=== PATIENT | female | born 1945 | race Caucasian/White ===

== ENCOUNTER 2018-09-15 03:13 | Observation (INO) | payer OTHER ==
[~2018-09-15] VITALS: Ht 144.8 cm; Wt 55.5 kg
[~2018-09-15 03:13] MED LIST: ASPI-535 PO; METO-448
[2018-09-15] MEDS ORDERED: SOD CHLORIDE 0.9% 500 ML IV STA (03:15)
[2018-09-15] MEDS ORDERED: ASPI81TA52 PO (06:36)
[2018-09-15] MEDS ORDERED: METO-448 PO (06:37)
[2018-09-15] MEDS ORDERED: DEXTROSE 5%-0.45% NACL 1,000 ML IV SCH (08:30)
[2018-09-15 09:00] VITALS: Ht 144.8 cm; Wt 55.5 kg
[2018-09-15 09:08] VITALS: BP 130/66; PULSE 101; RESP 18
--- NOTE | 2018-09-15 09:49 | PDOCDIS ---
Discharge Instructions CONDITION [id number] Patient Condition: [id number] Good HOME CARE INSTRUCTIONS: [id number] Diet Instructions: [id number] y FOLLOW UP/APPOINTMENTS Follow-up Plan pcp 1 week ANDRAE MCDANIELS MD September 15, 2018 09:49
--- NOTE | 2018-09-15 09:51 | PDOCDIS ---
Discharge Instructions CONDITION [id number] Patient Condition: [id number] Good HOME CARE INSTRUCTIONS: [id number] Diet Instructions: [id number] y FOLLOW UP/APPOINTMENTS Follow-up Plan pcp [address] Boudreaux 1 week ANDRAE MCDANIELS MD September 15, 2018 09:51
--- NOTE | 2018-09-15 12:32 | CONS ---
Assessment/Plan Assessment/Plan Hospital Course (Demo Recall) Summary Assessment and Plan: Assessment: BRBPR External hemorrhoids Macrocytic anemia- stable -CT abd/pelvis - unremarkable liver Indirect hyperbilirubinemia Tachycardia Cherelle-Danlos Plan: Colonoscopy was offered to the patient- after speaking with her son and brother, she currently declines in-pt colonoscopy and would prefer to f/u as an outpatient Discussed importance of following to r/o other causes of rectal bleeding including colon ca, she verbalized understanding and again declines in-pt colonoscopy. Discussed recommendations of High fiber diet, frame from straining to avoid constipation, okay to use [id number] hemorrhoidal medications i.e. Preparation H. Discussed need to follow-up with GI in 1 week for further evaluation and to schedule out-pt colonoscopy Patient seen in collaboration with Dr. Boudreaux CC: JASS BOUDREAUX MD ; Consultation Date/Type/Reason Admit Date/Time September 15, 2018 at 05:55 Type of Consult GI Reason for Consultation Rectal bleeding Date/Time of Note DATE: 09/15/18 TIME: 12:24 Hx of Present Illness This is a 73-year-old female with history of tachycardia currently on metoprolol who presented to the hospital with complaints of lower GI bleed. Patient states bleeding has been intermittent and recently progressively worse. She describes rectal bleeding as bright red. Initial labs show hemoglobin of 12.3, hematocrit 36.0 and macrocytic hyperchromic indices. Hemoglobin was rechecked [address] and documented 11.6. At time evaluation patient states she feels the urge to have a bowel movement unable to and notes that she has a pad in place with bright red blood she denies bleeding from her vagina states is all rectal. 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 Currently she denies n/v, abdominal pain, melena, unintentional weight loss. Denies family history of colon cancer and states she is never had a colonoscopy. Given clinical picture colonoscopy was recommended. Patient states she spoke to her son and brother and has decided not to move forward with inpatient colonoscopy she states she will follow-up as an outpatient to schedule colonoscopy. Discussed the importance given clinical picture to rule out other etiology of rectal bleeding including colon cancer patient verbalized understanding and agrees to follow-up as an outpatient to be evaluated. Review of Systems: A 12 system, review was conducted and is negative except as noted in the HPI or here. Past Medical History Home Meds Reported Medications Metoprolol Tartrate* (Lopressor*) 25 Mg Tab, 12.5 MG PO BID, #60 TAB 09/15/18 Aspirin (Low Dose Aspirin) 81 Mg Tablet.dr, 81 MG PO DAILY, #30 TAB 09/15/18 Discontinued Reported Medications Aspirin Ec (Aspir 81) 81 Mg Tablet.dr, 81 MG PO DAILY 10/18/11 Metoprolol Tartrate* (Lopressor*) 25 Mg Tab, DAILY, 0 Refills 09/25/10 Medications Current Medications Dextrose/Sodium Chloride 1,000 ml @ 75 mls/hr [id number] IV ; Start 09/15/18 at 08:30 Allergies: Coded Allergies: No Known Allergy (Unverified , 09/15/18) Social History Smoking Status: Never smoker Exam/Review of Systems Exam Vitals Vital Signs Date Temp Pulse Resp B/P (MAP) Pulse Ox O2 O2 Flow FiO2 Time Delivery Rate 09/15/18 98.7 101 18 130/66 97 Room Air 09:08 (87) Intake and Output 09/14/18 09/14/18 09/15/18 1515:00 23:00 07:00 IntakeIntake Total 500 ml BalanceBalance 500 ml Exam PHYSICAL EXAMINATION: GENERAL: Well developed, well nourished, alert & oriented x 3, in no acute distress SKIN: No lesions HEAD: Normocephalic, atraumatic, no tenderness. EYES: Pupils equal reactive to light and accommodation, no discharge. EARS/NOSE AND THROAT: Ears normal, nose normal. NECK: Supple, no masses CHEST: Inspection within normal limits. CARDIOVASCULAR: Heart: Regular rate and rhythm RESPIRATORY: Lungs clear to auscultation and percussion, no wheezing, no rubs GASTROINTESTINAL AND LIVER: Abdomen: Soft, non tenderness, non-distended, no hernias, no masses, no organomegaly, no ascites, no guarding, no rebound tenderness, normoactive bowel sounds. Rectal: External hemorrhoid GENITOURINARY: Female genitalia within normal limits. EXTREMITIES: No cyanosis, clubbing or edema. Results Result Diagram: 09/15/18 0907 09/15/18 0403 Results 24hrs Laboratory Tests Test 09/15/18 04:03 09/15/18 04:37 09/15/18 04:55 09/15/18 09:07 White Blood Count 4.8 Red Blood Count 3.53 L Hemoglobin 12.3 11.6 L Hematocrit 36.0 L Mean Corpuscular 102.0 H Volume Mean Corpuscular 34.8 H Hemoglobin Mean Corpuscular 34.2 Hemoglobin Concen t Red Cell 12.7 Distribution Width Platelet Count 221 Mean Platelet 9.9 Volume Immature 0.400 Granulocytes % Neutrophils % 61.4 Lymphocytes % 29.3 Monocytes % 7.5 Eosinophils % 0.6 Basophils % 0.8 Nucleated Red 0.0 Blood Cells % Immature 0.020 Granulocytes # Neutrophils # 2.9 Lymphocytes # 1.4 Monocytes # 0.4 Eosinophils # 0.0 Basophils # 0.0 Nucleated Red 0.0 Blood Cells # Prothrombin Time 12.8 Prothrombin Time 1.0 Ratio INR International 0.95 Normalized Ratio Activated 26.6 Partial Thrombopl ast Time Sodium Level 140 Potassium Level 4.0 Chloride Level 108 Carbon Dioxide 25 Level Anion Gap 7 Blood Urea 17 Nitrogen Creatinine 0.52 Est Glomerular Filtrat Rate mL/min Glucose Level 107 Calcium Level 9.6 Total Bilirubin 2.2 H Direct Bilirubin 0.00 Indirect 2.2 H Bilirubin Aspartate Amino 15 Transf (AST/SGOT) Alanine 18 Aminotransferase (ALT/SGPT) Alkaline 94 Phosphatase Total Protein 7.0 Albumin 4.0 Globulin 3.00 Albumin/Globulin 1.33 Ratio Lipase 70 Urine Color YELLOW Urine Clarity SLIGHTLY CLOUDY A Urine pH 6.0 Urine Specific 1.016 [place] Urine Ketones NEGATIVE Urine Nitrite NEGATIVE Urine Bilirubin NEGATIVE Urine NEGATIVE Urobilinogen Urine Leukocyte 2+ H Esterase Urine Microscopic 5 RBC Urine Microscopic 26 H WBC Urine FEW A Transitional Epithelial Cells Urine Bacteria MODERATE Urine Mucus FEW A Urine Hemoglobin 3+ H Urine Glucose NEGATIVE Urine Total 1+ H Protein Bedside Urine pH 6.0 (LAB) Bedside Urine 2+ H Protein (LAB) Bedside Urine Negative Glucose (UA) Bedside Urine Negative Ketones (LAB) Bedside Urine 3+ H Blood Bedside Urine Negative Nitrite (LAB) Bedside Urine 2+ H Leukocyte Esteras e (L Medications Medication Current Medications Dextrose/Sodium Chloride 1,000 ml @ 75 mls/hr [id number] IV ; Start 09/15/18 at 08:30 CARY RIZVI 22, 2019 12:32
--- NOTE | 2018-09-15 14:13 | HP ---
DATE OF ADMISSION: 09/15/2018 CHIEF COMPLAINT: Rectal bleed. HISTORY OF PRESENT ILLNESS: A 73-year-old female with unremarkable past medical history who presente d to emergency room with complaint of rectal bleed. The patient denies any abdominal pain. No nause a, vomiting or hematemesis. No melena. She attributes the bleeding to hemorrhoids. Bleeding gets c ourse when she has a bowel movement. She denies being constipated. Initial hemoglobin was 12.3 and repeat hemoglobin was 11.6. The patient takes baby aspirin daily. PAST MEDICAL HISTORY: Hypertension. MEDICATIONS PRIOR TO ADMISSION: 1. Metoprolol 12.5 mg p.o. b.i.d. 2. Aspirin 81 mg p.o. daily. SOCIAL HISTORY: The patient lives at home with a caregiver. She denies tobacco or alcohol use. PHYSICAL EXAMINATION: GENERAL: Well-developed, well-nourished elderly female who is in no apparent distress. VITAL SIGNS: Stable. She is afebrile. HEENT: Extraocular muscles are intact. Pupils are equal and reactive to light bilaterally. Sclerae are anicteric. Oropharynx is clear and moist. NECK: Supple. No JVD, no carotid bruits. LUNGS: Clear to auscultation bilaterally. CARDIAC: Regular rate and rhythm. No murmurs or gallops. ABDOMEN: Soft, nontender, nondistended, normoactive bowel sounds. EXTREMITIES: No clubbing, cyanosis or edema. NEUROLOGICAL: Grossly nonfocal. LABORATORY DATA: White blood cell count 4.8, repeat hemoglobin 11.6, platelet count 221,000. Basic metabolic panel within normal limits. Albumin is 4. ASSESSMENT: 1. A 73-year-old female presenting with rectal bleed, most likely due to hemorrhoids. 2. Hypertension, well controlled. PLAN: Place in tele observation. Continue to monitor hemoglobin. Discontinue baby aspirin. GI con sultation was requested. Dictated By: ANDRAE WILLINGHAM/ALON Conf#: [id number] DID#: [id number] CC: JASS MALONE;*EndCC*
[2018-09-15 15:43] VITALS: BP 116/75; PULSE 112; RESP 19
== END 2018-09-15 16:40 | disposition home or self-care (01) ==
LOC: EDBD 03:13 → E/R 03:13 → MS1 05:55
PROVIDERS: ADMIT Internal Medicine; ATTEND Internal Medicine
DX: K62.5 Hemorrhage of anus and rectum (principal); I10 Essential (primary) hypertension; K64.4 Residual hemorrhoidal skin tags; D53.9 Nutritional anemia, unspecified; R00.0 Tachycardia, unspecified; Q79.6 Ehlers-Danlos syndromes; Z79.82 Long term (current) use of aspirin
CPT/HCPCS: 74176; 80053; 81001; 83690; 85018; 85025; 85610; 85730; 87086; G0378; J7040; J7042; 81003